=== PATIENT | female | born 1985 | race Two or more races ===

== ENCOUNTER 2021-08-06 06:08 | Emergency (ER) | payer MEDICAID ==
[~2021-08-06] VITALS: Ht 160 cm; Wt 109.0 kg
[~2021-08-06 06:08] MED LIST: CYCL-448 PO; ETOD400T3 PO
[2021-08-06 06:14] VITALS: BP 115/74
[2021-08-06] MEDS ORDERED: METH4TAB3 PO (06:14)
[2021-08-06] MEDS ORDERED: DIPH25TA51 PO (06:14)
[2021-08-06] MEDS ORDERED: PredniSONE 20 MG TABLET PO ONE (06:45)
[2021-08-06] MEDS ORDERED: PRED-554 PO (06:47)
== END 2021-08-06 07:11 | disposition home or self-care (01) ==
LOC: EMS 06:09
DX: L50.9 Urticaria, unspecified (principal); Z79.899 Other long term (current) drug therapy
CPT/HCPCS: 99283; J7512